=== PATIENT | male | born 1980 | race Caucasian/White ===

== ENCOUNTER 2016-07-24 18:41 | Emergency (ER) | payer OTHER ==
[2016-07-24] MEDS ORDERED: HYDROcod/ACET 5/325 Prepack 6 PO STA (19:17)
[2016-07-24] MEDS ORDERED: HYDROcod/ACET 5/325 Prepack 6 PO ONE (19:23)
== END 2016-07-24 19:28 | disposition home or self-care (01) ==
DX: R10.31 Right lower quadrant pain (principal); G89.29 Other chronic pain; N43.3 Hydrocele, unspecified; I10 Essential (primary) hypertension; Z98.890 Other specified postprocedural states

== ENCOUNTER 2017-05-26 17:01 | Emergency (ER) | payer OTHER ==
[2017-05-26] MEDS ORDERED: SODIUM CHLORIDE 0.9% 1,000 ML IV ONE ×2 (17:16)
[2017-05-26] MEDS ORDERED: HYOSCYAMINE SL 0.125 MG TABLET SL STA (17:17)
--- NOTE | 2017-05-26 17:20 | ED Physician Documentation ---
History of Present Illness - Stated complaint Stated Complaint: ABD PAIN,DIARRHEA - Chief complaint Chief Complaint: Abd Pain - History obtained from History obtained from: Patient - History of Present Illness Timing: How many days ago (16) Pain level max: 5 Pain level now: 5 Improved by: nothing Worsened by: eating, moving - Additonal information Additional information: Patient is a 36-year-old male who presents to the emergency department with diarrhea for the past 16 days. States this occurs 8-10 times daily. States loose watery stools. Nonbloody. No fevers. Has had lower abdominal pain and cramping. No recent antibiotics. No recent travel. Did stop using oxycodone approximately 2-1/2 weeks ago. No travel or camping. Review of Systems Ten Systems: 10 systems reviewed and negative Constitutional: denies: Fever, Chills Ears: denies: Ear pain Nose: denies: Rhinorrhea / runny nose, Congestion Throat: denies: Sore throat Cardiac: denies: Chest pain / pressure Respiratory: denies: Cough GI: denies: Vomiting : denies: Dysuria, Frequency, Hesitancy, Now EGA Skin: denies: Rash Musculoskeletal: denies: Neck pain, Back pain Neurologic: denies: Headache PD PAST MEDICAL HISTORY - Past Medical History Cardiovascular: Hypertension Respiratory: Tuberculosis Endocrine/Autoimmune: None GI: GERD Psych: Depression, Anxiety, Post traumatic stress disorder Musculoskeletal: Chronic back pain, Other Derm: None - Past Surgical History Past Surgical History: Yes General: Hiatal hernia repair, Other - Present Medications Home Medications: Ambulatory Orders Medication Instructions Recorded Confirmed Pantoprazole [Protonix] 40 mg PO DAILY 03/06/15 05/26/17 Lisinopril 10 mg PO DAILY 10/21/16 05/26/17 Duloxetine HCl [Cymbalta] 1 tab PO DAILY 11/16/16 05/26/17 Celecoxib [CeleBREX] 100 mg PO DAILY 01/14/17 05/26/17 Hyoscyamine Sulfate [Levsin-Sl] 0.125 mg SL Q6H PRN #20 tab.subl 05/26/17 - Allergies Allergies/Adverse Reactions: Allergies Allergy/AdvReac Type Severity Reaction Status Date / Time tramadol Allergy Unknown Verified 01/14/17 14:27 - Social History Does the pt smoke?: No Smoking Status: Never smoker Does the pt drink ETOH?: No Does the pt have substance abuse?: No - Immunizations Immunizations are current?: Yes - POLST Patient has POLST: No PD ED PE NORMAL - Vitals Vital signs reviewed: Yes - General General: Alert and oriented X 3, No acute distress - HEENT HEENT: Moist mucous membranes - Neck Neck: Supple, no meningeal sign - Cardiac Cardiac: RRR - Respiratory Respiratory: No respiratory distress, Clear bilaterally - Abdomen Abdomen: Normal bowel sounds, Soft, Non distended, Other (TTP BLQ, R >L. no peritoneal signs. o/w normal exam.) - Derm Derm: Warm and dry, No rash - Neuro Neuro: Alert and oriented X 3 - Psych Psych: Normal mood, Normal affect Results - Vitals Vitals: Vital Signs - 24 hr 05/26/17 05/26/17 17:04 19:19 Temperature 36.2 C L Heart Rate 113 H 78 Respiratory 18 15 Rate Blood Pressure 132/95 H 127/78 O2 Saturation 97 100 Oxygen O2 Source Room air - Labs Labs: Microbiology 05/26/17 17:42 Campylobacter Antigen Assay - Final Stool Laboratory Tests 05/26/17 05/26/17 05/26/17 17:40 17:40 19:20 WBC 9.1 RBC 5.52 Hgb 16.6 Hct 47.1 MCV 85.4 MCH 30.2 MCHC 35.3 RDW 12.4 Plt Count 406 MPV 6.8 L Neut # 6.0 Lymph # 2.3 [place] # 0.6 Eos # 0.1 Baso # 0.1 Absolute Nucleated RBC 0.00 Nucleated RBC % 0.0 Sodium 140 Potassium 3.7 Chloride 101 Carbon Dioxide 24 Anion Gap 15.0 H BUN 16 Creatinine 1.0 Estimated GFR (MDRD) 85 L Glucose 116 H Calcium 9.9 Total Bilirubin 0.4 AST 22 ALT 29 Alkaline Phosphatase 74 Total Protein 8.2 Albumin 4.9 Globulin 3.3 Albumin/Globulin Ratio 1.5 Lipase 36 Urine Color YELLOW Urine Clarity CLEAR Urine pH 7.0 Ur Specific [place] 1.010 Urine Protein NEGATIVE Urine Glucose (UA) NEGATIVE Urine Ketones NEGATIVE Urine Occult Blood NEGATIVE Urine Nitrite NEGATIVE Urine Bilirubin NEGATIVE Urine Urobilinogen 0.2 (NORMAL) Ur Leukocyte Esterase NEGATIVE Urine RBC None Seen Urine WBC 0-3 Ur Squamous Epith Cells NONE SEEN Urine Bacteria None Seen Urine Culture Comments NOT INDICATED - Rads (name of study) CT abd/pelvis Radiology: Prelim report reviewed, EMP read contemporaneously, See rad report ( Left inguinal hernia and other chronic or incidental findings. No acute disease) PD MEDICAL DECISION MAKING - ED course Complexity details: reviewed results, re-evaluated patient, considered differential, d/w patient ED course: Patient is a 36-year-old male who presents to the emergency department with 2 weeks worth of diarrhea. He is well-appearing, nontoxic. Afebrile. Feels better after IV fluids. Levsin resolved with the abdominal cramping. No acute findings on CT scan or initial culture of the stool. We will continue supportive care and follow-up with his doctor. Abdomen is soft, nontender nondistended on serial exam. Patient counseled regarding signs and symptoms for which I believe and urgent re-evaluation would be necessary. Patient with good understanding of and agreement to plan and is comfortable going home at this time This document was made in part using voice recognition software. While efforts are made to proofread this document, sound alike and grammatical errors may occur. Departure - Departure Disposition: 01 Home, Self Care Clinical Impression: Diarrhea Qualifiers: Diarrhea type: unspecified type Qualified Code(s): R19.7 - Diarrhea, unspecified Condition: Good Instructions: ED Diarrhea Viral, ED Diet Vomiting Diarrhea Follow-Up: Patrick Wright MD [Primary Care Provider] - Within 3 Days Prescriptions: Hyoscyamine Sulfate [Levsin-Sl] 0.125 mg SL Q6H PRN #20 tab.subl PRN Reason: Abdominal Pain Comments: Drink plenty of fluids. Return if you worsen. You may need a colonoscopy or further workup with your doctor for inflammatory bowel disease. Your labs and CT are normal tonight. Forms: Activity restrictions Discharge Date/Time: 05/26/17 19:44
[2017-05-26] MEDS ORDERED: IOPAMIDOL-300 100 ML VIAL ONE (17:23)
[2017-05-26] MEDS ORDERED: HYOSCYAMINE SL 0.125 MG TABLET SL ONE (17:49)
[2017-05-26 17:57] LABS: BASOPHILS # (AUTO) 0.1 10^3/uL (0.0-0.1); BASOPHILS % (AUTO) 0.6 %; EOSINOPHILS # (AUTO) 0.1 10^3/uL (0.0-0.7); EOSINOPHILS % (AUTO) 0.7 %; HCT - HEMATOCRIT 47.1 % (42.0-52.0); HGB - HEMOGLOBIN 16.6 g/dL (14.0-18.0); LYMPHOCYTES # (AUTO) 2.3 10^3/uL (1.5-3.5); LYMPHOCYTES % (AUTO) 25.9 %; MEAN CORPUSCULAR HEMOGLOBIN 30.2 pg (27.0-31.0); MEAN CORPUSCULAR HGB CONC 35.3 g/dL (32.0-36.0); MEAN CORPUSCULAR VOLUME 85.4 fL (80.0-94.0); MEAN PLATELET VOLUME 6.8 fL (7.4-11.4); MONOCYTES # (AUTO) 0.6 10^3/uL (0.0-1.0); NEUTROPHILS % (AUTO) 65.8 %; RED BLOOD COUNT 5.52 10^6/uL (4.70-6.10); RED CELL DISTRIBUTION WIDTH 12.4 % (12.0-15.0); UNCORRECTED WHITE BLOOD COUNT 9.1 x10^3/uL; WHITE BLOOD COUNT 9.1 x10^3/uL (4.8-10.8)
[2017-05-26 18:09] LABS: ALBUMIN/GLOBULIN RATIO 1.5 (1.0-2.2); BILIRUBIN,TOTAL 0.4 mg/dL (0.2-1.0); CALCIUM 9.9 mg/dL (8.5-10.3); POTASSIUM 3.7 mmol/L (3.5-5.0); TOTAL PROTEIN 8.2 g/dL (6.7-8.2)
[2017-05-26] MEDS ORDERED: IOPAMIDOL-300 100 ML VIAL IVP ONE (18:17)
--- NOTE | 2017-05-26 18:31 | CT Preliminary Report ---
Exam: CT ABDOMEN/PELVIS W/ IMPRESSION: Left inguinal hernia and other chronic or incidental findings. No acute disease. [facility] SITE ID: [id number]
--- NOTE | 2017-05-26 18:34 | CT Report ---
EXAM: CT ABDOMEN AND PELVIS EXAM DATE: 05/26/2017 06:17 PM. CLINICAL HISTORY: RLQ abd pain, diarrhea x 2 weeks. COMPARISONS: None. TECHNIQUE: Routine helical CT imaging was performed through the abdomen and pelvis. IV contrast: 100M L OF ISOVUE 300. Enteric contrast: No. Reconstructions: Coronal and sagittal. In accordance with CT protocol optimization, one or more of the following dose reduction techniques w ere utilized for this exam: automated exposure control, adjustment of mA and/or KV based on patient s ize, or use of iterative reconstructive technique. FINDINGS: Lung Bases: Unremarkable. Liver: Normal. No masses. Gallbladder/Bile Ducts: Contracted. No ductal dilation. Spleen: Normal. Pancreas: Normal. Adrenal Glands: Normal. Kidneys: Normal. No masses or hydronephrosis. Retroaortic left renal vein. Peritoneal Cavity/Bowel: Normal. No free fluid, free air or adenopathy. No masses or acute inflammato ry process. The appendix is well visualized and normal. Pelvic Organs: Normal. The bladder and visualized pelvic organs are within normal limits. Vasculature: No aneurysms or other significant abnormality. Bones: No significant abnormality. Other: Small left inguinal hernia with fat involvement only. IMPRESSION: Left inguinal hernia and other chronic or incidental findings. No acute disease. [facility] Referring Provider Line: [phone] SITE ID: [id number]
[2017-05-26 19:20] VITALS: BP 127/78
[2017-05-26 19:29] LABS: BILIRUBIN,URINE NEGATIVE (NEGATIVE)
[2017-05-26 19:46] LABS: UR CULTURE IF IND NOT INDICATED; WBC,URINE 0-3 /HPF (0-3)
== END 2017-05-26 19:44 | disposition home or self-care (01) ==
LOC: ED 17:01
DX: R19.7 Diarrhea, unspecified (principal); I10 Essential (primary) hypertension; K21.9 Gastro-esophageal reflux disease without esophagitis
CPT/HCPCS: 74177; 80053; 81001; 83690; 85025; 87045; 87046; 99283; 99284; A9270; Q9967; 87086

== ENCOUNTER 2017-07-22 01:23 | Emergency (ER) | payer OTHER ==
[2017-07-22] MEDS ORDERED: KETOROLAC 60 MG/2 ML VIAL IM STA (01:48)
--- NOTE | 2017-07-22 01:53 | ED Physician Documentation ---
PD HPI MALE - Stated complaint Stated Complaint: MALE - Chief complaint Chief Complaint: General - History obtained from History obtained from: Patient - History of Present Illness Timing - onset: Yesterday Timing - duration: Hours Timing - details: Gradual onset, Still present, Waxing and waning Associated symptoms: Testiclar pain Similar symptoms before: Diagnosis (hydrocele symptomatic) Recently seen: Clinic - Additional information Additional information: 36-year-old male with history of chronic right testicular pain after inguinal hernia repair has a known hydrocele and periodically will have pain that exceeds what gabapentin and indomethacin are helpful with. He has had to have Toradol injection about once per month. He is unable to sleep tonight has taken his medications and comes to the emergency department with pain in the right testicle. He denies any injury to the area he denies any heavy lifting and he denies any cough. He does have a referral to a surgeon for reevaluation and repair of a left inguinal hernia. He does have urologic follow-up. Review of Systems Constitutional: denies: Fever Eyes: denies: Decreased vision Ears: denies: Ear pain Nose: denies: Congestion Throat: denies: Sore throat Respiratory: denies: Cough GI: denies: Vomiting : reports: Testicular pain. denies: Dysuria, Frequency Skin: denies: Rash Musculoskeletal: denies: Neck pain, Back pain PD PAST MEDICAL HISTORY - Past Medical History Past Medical History: Yes Cardiovascular: Hypertension Respiratory: Tuberculosis Endocrine/Autoimmune: None GI: GERD Psych: Depression, Anxiety, Post traumatic stress disorder Musculoskeletal: Chronic back pain, Other Derm: None - Past Surgical History Past Surgical History: Yes General: Hiatal hernia repair, Other - Present Medications Home Medications: Ambulatory Orders Medication Instructions Recorded Confirmed Pantoprazole [Protonix] 40 mg PO DAILY 03/06/15 07/22/17 Lisinopril 10 mg PO DAILY 10/21/16 07/22/17 Duloxetine HCl [Cymbalta] 1 tab PO DAILY 11/16/16 07/22/17 Celecoxib [CeleBREX] 100 mg PO DAILY 01/14/17 07/22/17 Hyoscyamine Sulfate [Levsin-Sl] 0.125 mg SL Q6H PRN #20 tab.subl 05/26/17 - Allergies Allergies/Adverse Reactions: Allergies Allergy/AdvReac Type Severity Reaction Status Date / Time tramadol Allergy Unknown Verified 07/22/17 01:34 - Social History Does the pt smoke?: No Smoking Status: Never smoker Does the pt drink ETOH?: No Does the pt have substance abuse?: No - Immunizations Immunizations are current?: Yes - POLST Patient has POLST: No PD ED PE NORMAL - Vitals Vital signs reviewed: Yes (Hypertensive) - General General: Alert and oriented X 3, No acute distress, Well developed/nourished - HEENT HEENT: Atraumatic, PERRL - Respiratory Respiratory: No respiratory distress - Abdomen Abdomen: Soft, Non tender - Male Male : Other (The right testicle is examined and there is a hydrocele present and this is mildly tender. There is mild tenderness along the surgical repair site without mass, erythema or drainage. The right hemiscrotum is swollen consistent with a hydrocele) - Back Back: No CVA TTP, No spinal TTP - Derm Derm: Normal color, Warm and dry, No rash - Extremities Extremities: No deformity, No edema Results - Vitals Vitals: Vital Signs - 24 hr 07/22/17 01:25 Temperature 36.0 C L Heart Rate 91 Respiratory 16 Rate Blood Pressure 136/93 H O2 Saturation 97 Oxygen O2 Source Room air PD MEDICAL DECISION MAKING - ED course Complexity details: reviewed old records, considered differential, d/w patient ED course: 36 y/o male with chronic right testicle pain/swelling intermittently requires additional pain control. He is not taking narcotic now and requests toradal and he is given an injection of 60mg IM. Departure - Departure Disposition: Home, Self Care Clinical Impression: Groin pain, chronic, right Condition: Stable Instructions: ED Hydrocele Type Not Specified Follow-Up: Patrick Wright MD [Primary Care Provider] -
[2017-07-22 02:29] VITALS: BP 133/88
== END 2017-07-22 02:30 | disposition home or self-care (01) ==
LOC: ED 01:23
DX: N50.811 Right testicular pain (principal); N43.3 Hydrocele, unspecified; I10 Essential (primary) hypertension; K21.9 Gastro-esophageal reflux disease without esophagitis
CPT/HCPCS: 96372; 99283

== ENCOUNTER 2017-08-10 21:26 | Emergency (ER) | payer OTHER ==
--- NOTE | 2017-08-10 21:36 | ED Physician Documentation ---
PD HPI BACK PAIN - Stated complaint Stated Complaint: BACK PAIN - Chief complaint Chief Complaint: Back Pain - History obtained from History obtained from: Patient - History of Present Illness Timing - onset: Today Timing - duration: Hours Timing - details: Abrupt onset Location: Lower, Right Quality: Pain, Spasm Associated symptoms: No: Fever, Weakness, Numbness Improves with: No: Rest, Meds Worsened by: Movement, Palpation Contributing factors: Twisting Similar symptoms before: Diagnosis (has had back muscular pains in the past episodically. ALso has right inguinal hernia with surgical consult due in Aug. That area is not hurting right now.) Review of Systems Constitutional: denies: Fever, Chills GI: denies: Abdominal Pain, Nausea, Vomiting, Diarrhea : denies: Dysuria, Frequency Skin: denies: Rash, Lesions Neurologic: denies: Focal weakness, Numbness PD PAST MEDICAL HISTORY - Past Medical History Cardiovascular: Hypertension Respiratory: Tuberculosis Endocrine/Autoimmune: None GI: GERD Psych: Depression, Anxiety, Post traumatic stress disorder Musculoskeletal: Chronic back pain, Other Derm: None - Past Surgical History Past Surgical History: Yes General: Hiatal hernia repair, Other - Present Medications Home Medications: Ambulatory Orders Medication Instructions Recorded Confirmed Pantoprazole [Protonix] 40 mg PO DAILY 03/06/15 07/22/17 Lisinopril 10 mg PO DAILY 10/21/16 07/22/17 Duloxetine HCl [Cymbalta] 1 tab PO DAILY 11/16/16 07/22/17 Celecoxib [CeleBREX] 100 mg PO DAILY 01/14/17 07/22/17 Hyoscyamine Sulfate [Levsin-Sl] 0.125 mg SL Q6H PRN #20 tab.subl 05/26/17 Oxycodone HCl/Acetaminophen 1 each PO Q6H PRN #20 tablet 08/10/17 [Percocet 5-325 mg Tablet] - Allergies Allergies/Adverse Reactions: Allergies Allergy/AdvReac Type Severity Reaction Status Date / Time tramadol Allergy Unknown Verified 08/10/17 21:34 - Social History Does the pt smoke?: No Smoking Status: Never smoker Does the pt drink ETOH?: No Does the pt have substance abuse?: No - Immunizations Immunizations are current?: Yes - POLST Patient has POLST: No PD ED PE NORMAL - Vitals Vital signs reviewed: Yes - General General: Alert and oriented X 3, Well developed/nourished, Other (appears in pain with movement) - Neck Neck: Supple, no meningeal sign, No adenopathy - Cardiac Cardiac: RRR, No murmur - Respiratory Respiratory: Clear bilaterally - Abdomen Abdomen: Soft, Non tender, Other (inguinal area with tenderness nor swelling. Testicles not tender. ) - Back Back: No CVA TTP, No spinal TTP, Other (tender right lower back muscles with some feeling of spasm. No rash nor sores. ) - Derm Derm: Normal color, Warm and dry, No rash - Neuro Neuro: Alert and oriented X 3, No motor deficit, No sensory deficit Results - Vitals Vitals: Oxygen O2 Source Room air PD MEDICAL DECISION MAKING - ED course Complexity details: reviewed old records, reviewed results, considered differential, d/w patient Departure - Departure Disposition: 01 Home, Self Care Clinical Impression: Acute lumbar myofascial strain Qualifiers: Encounter type: initial encounter Qualified Code(s): S39.012A - Strain of muscle, fascia and tendon of lower back, initial encounter Condition: Stable Record reviewed to determine appropriate education?: Yes Instructions: ED Sprain Strain Lumbar Follow-Up: Patrick Wright MD [Primary Care Provider] - Prescriptions: Oxycodone HCl/Acetaminophen [Percocet 5-325 mg Tablet] 1 each PO Q6H PRN #20 tablet PRN Reason: Pain Comments: Off work for couple of days as needed. However do not do complete bedrest but do some light activity and up and around so your back is not as stiff. Continue anti-inflammatories and muscle relaxants. Add Tylenol or Percocet if needed for pains. Limited lifting and bending for for 5 days. Follow-up with your primary care if not better during that time. Forms: Activity restrictions Discharge Date/Time: 08/10/17 23:10
[2017-08-10] MEDS ORDERED: KETOROLAC 60 MG/2 ML VIAL IM STA (21:56)
[2017-08-10] MEDS ORDERED: oxyCODONE/ACET 5/325 Prepack 4 PO STA (21:56)
[2017-08-10] MEDS ORDERED: HYDROmorphone 1 MG/ML SYRINGE IM STA (21:56)
[2017-08-10 23:10] VITALS: BP 139/90
== END 2017-08-10 23:10 | disposition home or self-care (01) ==
LOC: ED 21:26
DX: S39.012A Strain of muscle, fascia and tendon of lower back, initial encounter (principal); X50.9XXA Other and unspecified overexertion or strenuous movements or postures, initial encounter; I10 Essential (primary) hypertension
CPT/HCPCS: 96372; 99283; J1170

== ENCOUNTER 2017-11-02 20:26 | Emergency (ER) | payer OTHER ==
--- NOTE | 2017-11-02 21:04 | ED Physician Documentation ---
PD HPI CHEST PAIN - Stated complaint Stated Complaint: CHEST PX - Chief complaint Chief Complaint: Cardiac - History obtained from History obtained from: Patient - History of Present Illness Timing - onset: How many weeks ago (2) Timing - details: Gradual onset, Intermittant, Waxing and waning Quality: Pressure, Aching Location: Left chest Similar symptoms before: Has not had sx before Recently seen: Not recently seen - Additional information Additional information: patient is a 37 year old male with no significant past medical history who is presenting to the emergency department for chest pain. patient states that about 3 weeks ago he had pneumonia and after pneumonia he has had a productive cough. patient states that his right sided chest pain has resolved but he has had intermittent left sided chest pain. Patient denies any exertional component and is still able to go to the gym. patient states that it is worse with certain movements, when he coughs and when he takes a deep breath. Review of Systems Constitutional: denies: Fever, Chills Nose: reports: Rhinorrhea / runny nose Throat: denies: Sore throat Cardiac: reports: Chest pain / pressure. denies: Palpitations, Pedal edema, Calf pain Respiratory: reports: Cough. denies: Dyspnea, Hemoptysis, Wheezing GI: denies: Nausea, Vomiting : reports: Reviewed and negative Skin: denies: Rash, Lesions, Abrasion (s) Musculoskeletal: denies: Extremity swelling Immunocompromised: denies: Immunocompromised PD PAST MEDICAL HISTORY - Past Medical History Cardiovascular: Hypertension Respiratory: Tuberculosis Endocrine/Autoimmune: None GI: GERD Psych: Depression, Anxiety, Post traumatic stress disorder Musculoskeletal: Chronic back pain, Other Derm: None - Past Surgical History Past Surgical History: Yes General: Hiatal hernia repair, Other - Present Medications Home Medications: Ambulatory Orders Medication Instructions Recorded Confirmed Pantoprazole [Protonix] 40 mg PO DAILY 03/06/15 07/22/17 Lisinopril 10 mg PO DAILY 10/21/16 07/22/17 Duloxetine HCl [Cymbalta] 1 tab PO DAILY 11/16/16 07/22/17 Celecoxib [CeleBREX] 100 mg PO DAILY 01/14/17 07/22/17 Hyoscyamine Sulfate [Levsin-Sl] 0.125 mg SL Q6H PRN #20 tab.subl 05/26/17 Oxycodone HCl/Acetaminophen 1 each PO Q6H PRN #20 tablet 08/10/17 [Percocet 5-325 mg Tablet] - Allergies Allergies/Adverse Reactions: Allergies Allergy/AdvReac Type Severity Reaction Status Date / Time tramadol Allergy NIGHT Verified 11/02/17 20:42 TERRORS - Social History Does the pt smoke?: No Smoking Status: Never smoker Does the pt drink ETOH?: No Does the pt have substance abuse?: No - Immunizations Immunizations are current?: Yes - POLST Patient has POLST: No PD ED PE NORMAL - General General: Alert and oriented X 3, No acute distress - HEENT HEENT: Moist mucous membranes - Neck Neck: No JVD - Cardiac Cardiac: RRR, No murmur - Respiratory Respiratory: No respiratory distress, Clear bilaterally - Abdomen Abdomen: Non distended - Derm Derm: Normal color, Warm and dry - Extremities Extremities: No edema, No calf tenderness / cord - Neuro Neuro: Alert and oriented X 3 Results - Vitals Vitals: Vital Signs - 24 hr 11/02/17 11/02/17 20:37 21:45 Temperature 37.0 C 37.0 C Heart Rate 90 77 Respiratory 16 16 Rate Blood Pressure 133/79 H 120/78 O2 Saturation 97 95 Oxygen O2 Source Room air - EKG (time done) 2031 Rate: Rate (enter#) (93) Rhythm: NSR [place]: Normal Intervals: Normal ME QRS: Normal Ischemia: Normal ST segments Compare to prior EKG: Old EKG unavailable - Labs Labs: Laboratory Tests 11/02/17 20:45 Troponin I < 0.04 - Rads (name of study) chest x-ray Radiology: Final report received (normal) PD MEDICAL DECISION MAKING - ED course Complexity details: reviewed old records, reviewed results, re-evaluated patient , considered differential, d/w patient ED course: Patient was seen and examined at bedside. patient was well appearing and in no acute distress. keg was performed and was normal sinus. labs were drawn and imaging was ordered. When patient's diagnostics came back they were within normal limits. Patient had PERC score of 0, and HEART score of 0. patient was treated with toradol for pain. patient required no further work up and was stable for discharge with outpatient follow up. Departure - Departure Disposition: 01 Home, Self Care Clinical Impression: Chest wall pain Condition: Good Instructions: ED Strain Chest Wall Follow-Up: primary,care provider [Other] - As Needed Comments: Your diagnostics today were within normal limits. Your pain is unlikely cardiac or pulmonary in nature, more likely secondary to the coughing. You should alternate between motrin and tylenol as needed for pain. You should follow up with your doctor if your symptoms persist. You may return to the emergency department at any time for new, worsening or uncontrollable symptoms. Discharge Date/Time: 11/02/17 21:46
--- NOTE | 2017-11-02 21:12 | XRAY Report ---
EXAM: CHEST RADIOGRAPHY EXAM DATE: 11/02/2017 09:05 PM. CLINICAL HISTORY: Productive cough. COMPARISON: 04/11/2015. TECHNIQUE: 2 views. FINDINGS: Lungs/Pleura: No consolidative process. There is mild linear density at the left lung base has the ap pearance of atelectasis. Lung volumes are normal. Negative for pleural effusion and pneumothorax. Mediastinum: Heart and mediastinal contours are unremarkable. Other: None. IMPRESSION: Mild left basilar linear atelectasis. No consolidative pneumonia. [facility] Referring Provider Line: [phone] SITE ID: [id number]
[2017-11-02] MEDS ORDERED: KETOROLAC 60 MG/2 ML VIAL IVP STA (21:23)
[2017-11-02 21:47] VITALS: BP 120/78
== END 2017-11-02 21:46 | disposition home or self-care (01) ==
LOC: ED 20:26
DX: R07.89 Other chest pain (principal); I10 Essential (primary) hypertension
CPT/HCPCS: 36415; 71046; 84484; 93005; 96374; 99283; 99284

== ENCOUNTER 2018-09-18 21:48 | Emergency (ER) | payer OTHER ==
[2018-09-18 22:04] VITALS: BP 127/81
--- NOTE | 2018-09-18 22:21 | ED Physician Documentation ---
History of Present Illness - Stated complaint Stated Complaint: CARBON MONOXIDE EXP - Chief complaint Chief Complaint: General - History obtained from History obtained from: Patient - History of Present Illness Timing: Other (For several months now he is had a feeling of being out of it with diarrhea and discoordination on days that he works. The furnace was inspected today and found to be putting out carbon monoxide and he was referred here for testing.) Review of Systems Constitutional: reports: Fatigue. denies: Fever, Chills Throat: denies: Dental pain / toothache, Sore throat Cardiac: denies: Chest pain / pressure, Palpitations PD PAST MEDICAL HISTORY - Past Medical History Cardiovascular: Hypertension Respiratory: Tuberculosis Endocrine/Autoimmune: None GI: GERD Psych: Depression, Anxiety, Post traumatic stress disorder Musculoskeletal: Chronic back pain, Other Derm: None - Past Surgical History Past Surgical History: Yes General: Hiatal hernia repair, Other - Present Medications Home Medications: Ambulatory Orders Medication Instructions Recorded Confirmed Duloxetine HCl [Cymbalta] 20 mg PO DAILY 11/16/16 09/18/18 - Allergies Allergies/Adverse Reactions: Allergies Allergy/AdvReac Type Severity Reaction Status Date / Time tramadol Allergy NIGHT Verified 09/18/18 22:00 TERRORS - Social History Does the pt smoke?: No Smoking Status: Never smoker Does the pt drink ETOH?: No Does the pt have substance abuse?: No - Immunizations Immunizations are current?: Yes - POLST Patient has POLST: No PD ED PE NORMAL - Vitals Vital signs reviewed: Yes - General General: Alert and oriented X 3, No acute distress - Neck Neck: Supple, no meningeal sign, No bony TTP - Derm Derm: No rash - Neuro Neuro: Alert and oriented X 3, Normal speech - Psych Psych: Normal mood, Normal affect Results - Vitals Vitals: Vital Signs - 24 hr 09/18/18 21:52 Temperature 36.2 C L Heart Rate 87 Respiratory 16 Rate Blood Pressure 127/81 H O2 Saturation 99 Oxygen O2 Source Room air - Labs Labs: Laboratory Tests 09/18/18 22:12 VBG Total Hgb 16.8 VBG Oxyhemoglobin 63 L VBG Carboxyhemoglobin 1.6 H VBG Methemoglobin 0.1 Departure - Departure Disposition: 01 Home, Self Care Clinical Impression: Carbon monoxide exposure Condition: Good Record reviewed to determine appropriate education?: Yes Comments: Call your doctor to arrange a follow-up appointment, make the next available appointment. In the interim, return anytime if worse or if new symptoms develop. Your blood pressure was elevated today on check into the emergency department. This does not mean that you have hypertension, it is a common phenomenon to come to the emergency department and have elevated blood pressure. I recommend that you see your primary care physician within the week to have it rechecked when you are feeling better.
== END 2018-09-18 22:28 | disposition home or self-care (01) ==
LOC: ED 21:48
DX: R53.83 Other fatigue (principal); R19.7 Diarrhea, unspecified; Z77.128 Contact with and (suspected) exposure to other hazards in the physical environment; I10 Essential (primary) hypertension
CPT/HCPCS: 36415; 82375; 99282

== ENCOUNTER 2019-01-06 08:13 | Emergency (ER) | payer OTHER ==
--- NOTE | 2019-01-06 08:50 | ED Physician Documentation ---
PD HPI SKIN - Stated complaint Stated Complaint: RASH/NAUSEA - Chief complaint Chief Complaint: Abd Pain - History obtained from History obtained from: Patient - History of Present Illness Timing - onset: Today Timing - duration: Hours Timing - details: Gradual onset, Still present Location: Back Quality / character: Itchy, Burning Associated symptoms: Joint pain, Headache, N/V/D. No: Fever, Myalgias, Facial swelling, Dyspnea, Abd pain, Urinary sx Contributing factors: Unknown Similar symptoms before: Has not had sx before Recently seen: Not recently seen - Additional information Additional information: 38-year-old male with a history of PTSD has awakened this morning with a rash on his back. He did have some nausea this morning which is not uncommon for the patient. He has had nausea about once per month since 2002. He states that his noticed this rash on his back and after she knows that he began to sense the itching from it. He is uncertain how long this is been present. He was not symptomatic with this yesterday. He has not had a prodromal syndrome. Review of Systems Constitutional: denies: Fever, Chills, Myalgias Eyes: denies: Decreased vision Ears: denies: Ear pain Nose: denies: Rhinorrhea / runny nose, Congestion Throat: denies: Sore throat Cardiac: denies: Chest pain / pressure, Palpitations Respiratory: denies: Dyspnea, Cough GI: reports: Nausea. denies: Abdominal Pain, Vomiting, Constipation, Diarrhea : denies: Dysuria, Frequency Skin: reports: Rash Musculoskeletal: reports: Back pain, Joint pain (for 3 weeks right wrist). denies: Neck pain, Extremity pain PD PAST MEDICAL HISTORY - Past Medical History Cardiovascular: Hypertension Respiratory: Tuberculosis Endocrine/Autoimmune: None GI: GERD Psych: Depression, Anxiety, Post traumatic stress disorder Musculoskeletal: Chronic back pain, Other Derm: None - Past Surgical History Past Surgical History: Yes General: Hiatal hernia repair, Other - Present Medications Home Medications: Ambulatory Orders Medication Instructions Recorded Confirmed Duloxetine HCl [Cymbalta] 20 mg PO DAILY 11/16/16 01/06/19 Triamcinolone 0.1% Cream [Kenalog 1 applic TOP BID #1 tube 01/06/19 0.1% Cream] hydrOXYzine pamoate [Hydroxyzine 25 - 50 mg PO Q6HR #30 capsule 01/06/19 Pamoate] - Allergies Allergies/Adverse Reactions: Allergies Allergy/AdvReac Type Severity Reaction Status Date / Time tramadol Allergy NIGHT Verified 01/06/19 08:35 TERRORS - Social History Does the pt smoke?: No Smoking Status: Never smoker Does the pt drink ETOH?: No Does the pt have substance abuse?: No - Immunizations Immunizations are current?: Yes - POLST Patient has POLST: No PD ED PE NORMAL - Vitals Vital signs reviewed: Yes (hypertensive mild ) - General General: Alert and oriented X 3, No acute distress, Well developed/nourished - HEENT HEENT: Atraumatic, PERRL, EOMI, Ears normal, Moist mucous membranes, Pharynx benign - Neck Neck: Supple, no meningeal sign, No bony TTP - Cardiac Cardiac: RRR, No murmur - Respiratory Respiratory: No respiratory distress, Clear bilaterally - Abdomen Abdomen: Soft, Non tender - Back Back: No CVA TTP, No spinal TTP - Derm Derm: Normal color, Warm and dry, Other (There is a [place] tree patterned rash consisting of oval shaped finely flaked plaques over back and not the front or other areas. ) - Extremities Extremities: No deformity, No edema - Neuro Neuro: Alert and oriented X 3, civil rights attorney 2-12 intact, No motor deficit, No sensory deficit, Normal speech Eye Opening: Spontaneous Motor: Obeys Commands Verbal: Oriented GCS Score: 15 - Psych Psych: Normal mood, Normal affect Results - Vitals Vitals: Vital Signs - 24 hr 01/06/19 01/06/19 08:29 09:00 Temperature 36.7 C 37 C Heart Rate 74 63 Respiratory 18 16 Rate Blood Pressure 141/89 H 131/90 H O2 Saturation 99 97 Oxygen O2 Source Room air PD MEDICAL DECISION MAKING - ED course Complexity details: considered differential, d/w patient ED course: 38-year-old male with a rash on his back that appears to be consistent with pityriasis rosea. Departure - Departure Disposition: 01 Home, Self Care Clinical Impression: Pityriasis rosea Condition: Stable Health Concerns: rash Plan of Treatment: steroid cream and anti itch medication Care Goals: relieve symptoms while awaiting self resolution Assessment: pityriasis rosea Instructions: ED Pityriasis Rosea Follow-Up: DENIS GILBERT MD [Primary Care Provider] - Prescriptions: hydrOXYzine pamoate [Hydroxyzine Pamoate] 25 - 50 mg PO Q6HR #30 capsule Triamcinolone 0.1% Cream [Kenalog 0.1% Cream] 1 applic TOP BID #1 tube Forms: Activity restrictions
[2019-01-06 09:41] VITALS: BP 125/89
== END 2019-01-06 09:41 | disposition home or self-care (01) ==
LOC: ED 08:13
DX: L42 Pityriasis rosea (principal); I10 Essential (primary) hypertension
CPT/HCPCS: 99283